=== PATIENT | female | born 1995 | race Caucasian/White ===

== ENCOUNTER 2017-05-28 20:44 | Emergency (ER) | payer OTHER ==
[~2017-05-28] VITALS: Ht 154.9 cm; Wt 57.6 kg
[2017-05-28 20:58] LABS: URINE BILIRUBIN - DIPSTICK NEGATIVE (NEG); URINE BLOOD TRACE-LYSED (NEG)
[2017-05-28] MEDS ORDERED: ZOLOFT 50MG TAB50 MG PO (20:58)
[2017-05-28 21:16] LABS: HEMOGLOBIN 13.6 g/dL (12.2-16.2); LYMPH # 2.5 K/mm3 (0.7-4.5); LYMPH % 28.2 % (10-50.0)
--- OUTSIDE RECORDS SUMMARY | 2017-05-28 21:18 | External Medical Summary Rpt | CCD ---
Author Author ANTONI Address Unknown Phone Purpose Continuity of Care Document - through 2016
--- OUTSIDE RECORDS SUMMARY | 2017-05-28 21:18 | External Medical Summary Rpt | CCD ---
Author Author [employer] Organization [employer] Address Unknown Phone Unavailable Purpose Continuity of Care Document - through 2016
--- OUTSIDE RECORDS SUMMARY | 2017-05-28 21:18 | External Medical Summary Rpt ---
Author Author JENNIFER Koehler, [employer] Organization [employer] Address Unknown Phone Unavailable
--- OUTSIDE RECORDS SUMMARY | 2017-05-28 21:18 | External Medical Summary Rpt | CCD ---
Demographics Preferred Language Nigerian Marital Status Unknown Confucianism Affiliation Unknown Race Unknown Ethnic Group Unknown Author Author , ANTONI RODRIGUEZ Address Unknown Phone Immunization Unable to retrieve immunization data due to connection failure with Immunization Registry. Please try again later.
--- OUTSIDE RECORDS SUMMARY | 2017-05-28 21:18 | External Medical Summary Rpt | CCD ---
Demographics Preferred Language Nicaraguan Marital Status Unknown Sabianist Affiliation Unknown Race Unknown Ethnic Group Unknown Author Author , ANTONI RODRIGUEZ Address Unknown Phone Immunization Unable to retrieve immunization data due to connection failure with Immunization Registry. Please try again later.
--- NOTE | 2017-05-28 21:31 | Emergency Room Report ---
History of Present Illness Time Seen by 2050 Presenting Problem in Triage Pt arrived:Walked Presenting Problem:C/O PAINFUL URINATION X 1 WEEK. REPORTS PAIN INCREASED AT END OF URINATION REPORTS SEEN FAMILY MD LAST WEEK.C/O NAUSEA AND DIARRHEA, C/O ABD PAIN, REPORTS DIARRHEA AND NAUSEA X 2 TO 3 DAYS. ALSO REQUESTING XRAY OF RIGHT HAND, REPORTS UNSURE OF INJURY BUT HURTING ALL DAY. Onset of symptoms date/time:05/21/17/ or onset unknown for:MEDICAL HX UNKNOWN Treatment Prior to Arrival: [facility] Provided by: Sepsis Risk Assessment: Temp: 98.7 B/P: 134/81 MAP: 98 Pulse: 69 Resp: 18 Recent fever? N Clinical Suspician of Infection? N Mental Status: 1 - Regular (Normal Baseline) Sepsis Risk:Low Sepsis Risk Have you (or family members/close friends) recently traveled outside the [place]? N If Yes, where/when: Have you had exposure to infectious disease within the past month? N TB? Other? Specify: Source patient, RN notes reviewed, old records Exam Limitations no limitations Cardiac Chest Pain Chest pain indicative of cardiac No Timing/Duration this evening Severity moderate ALLERGIES Coded Allergies: No Known Allergies (05/28/17) Home Medications Reported Medications Sertraline Hcl (Zoloft 50MG) 25 MG PO DAILY History Medical History General CAD? No Angina: No MO: No Hypertension? No Hyperlipidemia? No CHF? No DVT? No PE? No COPD? No Asthma? No Anemia? No GERD? No Gastric ulcers? No GI Bleed? No Hernia? No Thyroid Problems? No Hypothyroidism? No CVA? No Seizures? No Diabetes? No Renal Insuffiency? No End Stage Renal Disease? No UTI? No Stones? No BPH? No GB Disease: Yes Nephritic Syndrome? No Asplenia? No Hepatitis? No Sickle Cell Disease? No Arthritis? No Migraines? No Cataracts? No Glaucoma? No MRSA? No HIV? No TB? No Anxiety? No Depression? No Cancer? No More? Yes Additional hx: HEART MURMUR, MILD PRECLAMPSIA Immunization Hx DT/Tetanus Unknown Surgical Hx Previous Surgery?Y GALLBLADDER HERNIA REPAIR. 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 Respiratory denies cough, denies shortness of breath Cardiovascular denies chest pain, denies syncope Gastrointestinal see HPI, denies abdominal pain, denies constipation, denies diarrhea, nausea, denies vomiting Genitourinary see HPI, dysuria. denies: discharge, abnormal vaginal bleeding, frequency, hesitancy. Musculoskeletal see HPI, denies joint pain, denies joint swelling, denies neck pain, other Skin denies rash Psychiatric/Neurological denies headache, denies seizure Physical Exam Vital Signs Vital Signs Date Time Temp Pulse Resp B/P Pulse O2 O2 Flow FiO2 Ox Delivery Rate 05/28 2209 65 18 102/57 99 05/28 2047 98.7 69 18 134/81 98 - WBC >12,000 or <4,000 or 10% bands? 2 or more SIRS Criteria Met? B/P:134/81 MAP:98 Creatinine >2.0? UA output<0.5ml/kg/hr for 2 hrs? Platelet count >100,000? Lactate >2.0mmol/1? INR >1.2 or PTT > than 60 sec? Evidence of Organ Dysfunction? Provider documented clinical suspician of infection? N Sepsis Criteria Count: 0 Sepsis Risk: Low Sepsis Risk General Appearance no apparent distress Eye Exam - bilateral eye PERRL, bilateral eye EOMI Ear, Nose, Throat normal ENT inspection Neck supple Respiratory Status No: respiratory distress. Cardiovascular regular rate/rhythm Peripheral Pulses Pulses normal Yes Gastrointestinal soft, no organomegaly, no pulsatile mass, no guarding, no rebound Back no CVA tenderness Extremities normal inspection, rt hand ok Strength 4 Upper Ext (L), 4 Upper Ext (R), 4 Lower Ext (L), 4 Lower Ext (R) Neurologic alert, box puller II-XII nml as tested Reflexes Reflexes normal No Mental status normal mood/affect Skin intact Medical Decision Making LABS/Meds/Orders Pt receiving controlled substance in ED? No Results/Orders Laboratory Tests 05/28/170: Sodium 140, Potassium 3.3 L, Chloride 106, Carbon Dioxide 29, BUN 10, Creatinine 0.7, Estimated Creat Clear 115, Estimated GFR (MDRD) 105, Glucose 109 H, Calcium 9.1, Total Bilirubin 0.3, AST 13 L, ALT 15, Alkaline Phosphatase 74 , Total Protein 7.3, Albumin 4.1, Globulin 3.2, Albumin/Globulin Ratio 1.3, Amylase 39, Lipase 120, WBC 8.9, RBC 4.82, Hgb 13.6, Hct 40.2, MCV 83.4, RDW 13.7, Plt Count 291, MPV 7.4, Gran % 65.7, Gran # 5.9, Lymphocytes % 28.2, Monocytes % 4.1, Eosinophils % 1.6, Basophils % 0.5, Lymphocytes # 2.5, Monocytes # 0.4, Eosinophils # 0.1, Basophils # 0.0, PUBS MCHC 33.8, MCH 28.1 05/28/172051: Urine Color YELLOW, Urine Appearance CLEAR, Urine pH 6.0, Ur Specific [place] 1.025, Urine Protein 1+ H, Urine Ketones NEGATIVE, Urine Blood TRACE-LYSED, Urine Nitrate NEGATIVE, Urine Bilirubin NEGATIVE, Urine Urobilinogen 0.2, Ur Leukocyte Esterase 1+ H, Urine RBC 5-10, Urine WBC 3-5, Ur Squamous Epith Cells 3-5, Urine Bacteria 1+, Urine Mucus 1+, Urine Glucose NEGATIVE Current Medication Orders Sig/Maurice Start time Last Medication Dose Route Stop Time Status Admin Sodium Chloride 10 ML PRN PRN 05/28 2115 AC IV 05/29 2102 Orders Procedure Date/time Status DIET-NOTHING BY MOUTH 05/29 B Active CULTURE, URINE 05/[address] ABD & PELVIS W/O CONTRAST 05/[address] ABD W/RLQ PAIN REQ 05/28 2102 Complete HAND-RT 3 VIEWS 05/28 2102 Active IV SALINE LOCK 05/28 2102 Active LIPASE 05/28 2102 Complete CBC WITH AUTO DIFF 05/28 2102 Complete CHEM 12 PROFILE 05/28 2102 Complete AMYLASE 05/28 2102 Complete URINALYSIS/COMPLETE 05/28 2047 Complete URINE 05/28 2047 Complete XRAY/CT/US XRAY/CT/US 1 XRAY hand XR interpretation by reviewed by me Xray Results no fracture seen XRAY/CT/US 2 CT abdomen, pelvis CT interpretation by discussed w/radiologist Time results known: 2206 CT Results abnormal (see report) Departure Departure Time of Disposition 2206 Disposition DC Home or Self Care(routine) Clinical Impression Primary Impression: Cystitis Condition STABLE Referrals KIM,VIRAL (Family) Patient Instructions DI for Acute Cystitis Additional Instructions use meds and see pcp for follow up and culture results Discharge Counseling Counseled pt/family regarding diagnosis, test results, medications/RX, follow up needs Prescriptions Current Visit Scripts Ciprofloxacin HCl (Cipro 500MG TAB) 500 MG PO BID #14 TAB Phenazopyridine HCl (Pyridium) 200 MG PO TID #10 TAB ED Critical Care Critical Care No at [id number]
[2017-05-28] MEDS ORDERED: PYRIDIUM200 M2 PO (22:11)
[2017-05-28] MEDS ORDERED: CIPRO 500MG TA500 MG PO (22:11)
[2017-05-28 22:18] VITALS: BP 102/57
--- NOTE | 2017-05-29 04:36 | RADIOLOGY REPORT PS360 ---
HAND-RT 3 VIEWS HISTORY: C/O PAIN TO RIGHT HAND ORDERING PHYSICIAN: Janessa Arriaga MD PATIENT AGE: 21 years COMPARISON: None FINDINGS: No fracture or dislocation. No lytic or blastic change. There is normal mineralization. The joint spaces are well-preserved. No significant degenerative/arthritic changes. No erosive changes evident. IMPRESSION: Negative, no acute finding
--- NOTE | 2017-05-29 05:42 | RADIOLOGY REPORT PS360 ---
CT ABD PELVIS W/O CONTRAST CLINICAL INDICATION: Abdominal pain, lower abdominal pain, painful urination, pelvic pain PAIN WITH URINATION ORDERING PHYSICIAN: Janessa Arriaga MD PATIENT AGE: 21 years COMPARISON: None TECHNIQUE: Axial images obtained with sagittal and coronal reformats. PROCEDURE: Oral Contrast: None IV Contrast: None . FINDINGS: Lung bases are clear. The liver, spleen, adrenal glands, and pancreas have an unremarkable unenhanced CT appearance. There has been a prior cholecystectomy without biliary dilatation. The left kidney and left renal collecting system and ureter have an unremarkable appearance. The right kidney appears somewhat edematous with minimal ectasia of the right renal collecting system. No definite ureteral calculus. No urinary bladder calculus. Minimal thickening of the urinary bladder wall which may be seen with cystitis. Unremarkable appendix. No intestinal structure or free air. There is an IUD present. 16 mm right ovarian cyst. Small amount fluid in the cul-de-sac. IMPRESSION: 1. Minimal ectasia of the right renal collecting system and mild edema of the right kidney. No obvious ureteral calculus or urinary bladder calculus. These findings could be due to recently passed right ureteral stone or right-sided urinary tract infection 2. Possible cystitis.
== END 2017-05-28 22:20 | disposition home or self-care (01) ==
LOC: ER 20:44
PROVIDERS: Emergency Medicine
DX: N30.00 Acute cystitis without hematuria (principal)